=== PATIENT | female | born 1985 | race Caucasian/White ===

== ENCOUNTER 2019-10-22 12:31 | Emergency (ER) | payer OTHER ==
[2019-10-22] MEDS ORDERED: LIDOCAINE 1% 2 ML VIAL ONE ×2 (13:24→13:25)
--- NOTE | 2019-10-22 13:57 | ED Physician Documentation ---
History of Present Illness - Stated complaint Stated Complaint: LT KNEE LAC - Chief complaint Chief Complaint: Laceration - History obtained from History obtained from: Patient - Additonal information Additional information: Patient comes emergency department complaining of a left knee laceration that occurred while patient was Trying to break up a fight between her dog and another dog and was knocked over in the process. Patient states she fell to the ground which was concrete, striking her left knee. Patient denies any other injuries. She states she was able to walk home without difficulty, other than the knee being sore. Patient is up-to-date on tetanus. She denies any other complaints at this time. Review of Systems Ten Systems: 10 systems reviewed and negative Constitutional: reports: Reviewed and negative Eyes: reports: Reviewed and negative Ears: reports: Reviewed and negative Nose: reports: Reviewed and negative Throat: reports: Reviewed and negative Cardiac: reports: Reviewed and negative Respiratory: reports: Reviewed and negative GI: reports: Reviewed and negative : reports: Reviewed and negative Skin: reports: Laceration (s) Musculoskeletal: reports: Reviewed and negative Neurologic: reports: Reviewed and negative Psychiatric: reports: Reviewed and negative Endocrine: reports: Reviewed and negative Immunocompromised: reports: Reviewed and negative PD PAST MEDICAL HISTORY - Allergies Allergies/Adverse Reactions: Allergies Allergy/AdvReac Type Severity Reaction Status Date / Time No Known Drug Allergies Allergy Verified 10/22/19 12:36 - Social History Does the pt smoke?: No Smoking Status: Never smoker PD ED PE NORMAL - Vitals Vital signs reviewed: Yes - General General: Alert and oriented X 3, No acute distress - HEENT HEENT: Atraumatic, PERRL, EOMI, Moist mucous membranes - Neck Neck: Supple, no meningeal sign - Respiratory Respiratory: No respiratory distress - Abdomen Abdomen: Non distended - Derm Derm: Normal color, Warm and dry, No rash, Other (Patient has a total length 4 cm T-shaped laceration just inferior to her left patella in the midline. Tissue is somewhat macerated. No foreign bodies. Bleeding is controlled.No tendon involvement.Deepest part of the laceration is approximately 4 mm in depth.) - Extremities Extremities: No deformity - Neuro Neuro: Alert and oriented X 3 - Psych Psych: Normal mood, Normal affect Results - Vitals Vitals: Oxygen O2 Source Room air Procedures - Laceration (location) Left knee Length in cm: 4 Wound type: Stellate, Into subcut fat, Clean Neurovascular status: Sensory intact, Motor intact, Vascular intact Tendon involvement: Tendon intact Anesthesia: Lidocaine 2% Wound Preparation: Chlorhexadine, Irrigated copiously NS, Wound explored, To the base, Multiple flaps aligned Skin layer closure: Nylon, Interrupted, Sutures - enter # (8) Other: Patient tolerated well, No complications, Neurovascular intact, Dressing applied, Tetanus UTD Complexity: Intermediate PD MEDICAL DECISION MAKING - ED course ED course: Patient's wound was repaired as above. We have discussed wound care at home and the timeline for suture removal, which should be in about 7 days. Patient understands that the sutures are not absorbable and will need to be removed by a healthcare professional. We have discussed signs and symptoms of wound infection and the usual indications for return. Departure - Departure Disposition: 01 Home, Self Care Clinical Impression: Laceration Condition: Stable Instructions: ED Laceration All Comments: You should have the sutures removed in 7 days, either by your primary care physician, or by an urgent care, walk-in, or emergency department. You may let soap and water run over the wound, but please do not rub, scrub, or immerse the wound, in order to prevent infection. If the wound develops a puslike drainage, or redness spreading away from the wound progressively, please have the wound rechecked immediately. Discharge Date/Time: 10/22/19 14:21
[2019-10-22 14:08] VITALS: BP 114/63
== END 2019-10-22 14:21 | disposition home or self-care (01) ==
LOC: ED 12:31
DX: S81.012A Laceration without foreign body, left knee, initial encounter (principal); W54.1XXA Struck by dog, initial encounter; Y93.K9 Activity, other involving animal care
CPT/HCPCS: 12032